=== PATIENT | male | born 1970 ===

== ENCOUNTER 2023-10-07 10:31 | Emergency (ER) | payer SELFPAY ==
--- NOTE | 2023-10-07 10:51 | PC.NURSE ---
pt up to desk stating that his eye dr called back and can see him today. pt left facility without being seen
== END 2023-10-07 11:03 | disposition left against medical advice (07) ==
DX: Z53.21 Procedure and treatment not carried out due to patient leaving prior to being seen by health care provider (principal)
CPT/HCPCS: 99199